=== PATIENT | male | born 1940 | race American Indian/Alaskan Native ===

== ENCOUNTER 2018-02-13 06:02 | Emergency (ER) | payer MEDICARE ==
[2018-02-13 07:54] LABS: Basophils % (Auto) 0.5 % (0.0-1.8); Eosinophils % (Auto) 0.3 % (0.0-4.3); Hematocrit 47.6 % (35.5-45.6); Hemoglobin 15.9 gm/dl (11.8-15.2); Lymphocytes # (Auto) 0.5 K/mm3 (1.2-5.4); Lymphocytes % (Auto) 7.6 % (13.4-35.0); Mean Corpuscular HGB Conc 33 % (32-34); Mean Corpuscular Hemoglobin 28 pg (28-32); Mean Corpuscular Volume 85 fl (84-94); Monocytes # (Auto) 0.3 K/mm3 (0.0-0.8); Platelet Count 134 K/mm3 (140-440); Red Cell Distribution Width 14.1 % (13.2-15.2)
[2018-02-13 08:24] LABS: Albumin 4.5 g/dL (3.9-5); BUN/Creatinine Ratio 19; Blood Urea Nitrogen 23 mg/dL (9-20); Calcium 9.3 mg/dL (8.4-10.2); Hemolysis Index 107
[2018-02-13 08:41] LABS: Bilirubin,Urine NEG (Negative); Blood,Urine MOD (Negative); Color,Urine Straw (Yellow); Mucus,Urine FEW /HPF; Urobilinogen,Urine < 2.0 mg/dL (<2.0); WBC,Urine < 1.0 /HPF (0.0-6.0)
[2018-02-13 09:11] LABS: Alanine Aminotransferase 22 units/L (7-56)
[2018-02-13 09:59] VITALS: BP 155/98
[2018-02-13] MEDS ORDERED: ZOFRAN ODT PO ONE (10:04)
[2018-02-13] MEDS ORDERED: NACL 0.9% 250ML 250 ML IV ONE (10:14)
--- NOTE | 2018-02-13 10:15 | Emergency Department Report ---
ED General Adult HPI - General Chief complaint: Abdominal Pain Stated complaint: ABD PAIN; N/V; H/A Time Seen by Provider: 02/13/18 10:01 Source: patient Mode of arrival: Wheelchair Limitations: No Limitations - History of Present Illness Initial comments: 77-year-old chronically ill his diabetes as well as history of coronary artery disease with stents and medical management, did have stents placed in 2014, had a spell last night where he woke up from a night he coughed several times nonproductive no fever no chills no chest pain with emesis 2. No blood in the emesis. He recently ate out at a restaurant not sure if he came down something. He did have some intermittent abdominal cramps. He had no blood in the stool no black bowel movements. He had no fever or shaking chills no chest pain. He is here for evaluation of intermittent nausea vomiting and some intermittent abdominal cramps with some abdominal distention with a intermittent cough. He says the vomiting as been improved since this morning at 4 AM. He denies any exertional symptoms denies any other complaints he is essentially having cough intermittent nausea vomiting with some intermittent abdominal cramps was abdominal distention -: hour(s), unknown Severity scale (0 -10): 0 Consistency: intermittent, now resolved Worsens with: eating Associated Symptoms: loss of appetite, malaise, nausea/vomiting. denies: confusion, chest pain, diaphoresis, fever/chills, headaches, rash, seizure, shortness of breath, syncope, weakness - Related Data Home Medications Medication Instructions Recorded Confirmed Last Taken glipiZIDE XL [Glucotrol Xl] 10 mg PO QAM 04/11/15 02/13/18 04/29/15 metFORMIN [Glucophage] 500 mg PO BID 04/11/15 02/13/18 04/29/15 Carvedilol [Coreg] 6.25 mg PO BID 02/13/18 02/13/18 Unknown Clopidogrel [Plavix] 75 mg PO QDAY 02/13/18 02/13/18 Unknown Furosemide [Lasix TAB] 40 mg PO QDAY 02/13/18 02/13/18 Unknown Losartan [Cozaar] 25 mg PO QDAY 02/13/18 02/13/18 Unknown Potassium Chloride [Klor-Con M20] 20 meq PO DAILY 02/13/18 02/13/18 Unknown Previous Rx's Medication Instructions Recorded Last Taken Type Aspirin [Aspirin BABY CHEW TAB] 81 mg PO QDAY #30 tab.chew 04/16/15 04/29/15 Rx AtorvaSTATin [Lipitor] 10 mg PO QDAY #30 tablet 04/16/15 04/29/15 Rx Allergies Allergy/AdvReac Type Severity Reaction Status Date / Time No Known Allergies Allergy Verified 04/29/15 12:18 ED Review of Systems ROS: Stated complaint: ABD PAIN; N/V; H/A Other details as noted in HPI Comment: All other systems reviewed and negative Constitutional: malaise. denies: diaphoresis, fever ENT: denies: dental pain, hearing loss, epistaxis Respiratory: denies: shortness of breath, SOB with exertion, SOB at rest, stridor Cardiovascular: denies: chest pain, palpitations, dyspnea on exertion, orthopnea , edema, syncope, paroxysmal nocturnal dyspnea Endocrine: denies: excessive sweating, flushing, intolerance to cold, intolerance to heat Gastrointestinal: abdominal pain, nausea, vomiting, diarrhea, other (recent travel no blood or pus no rcent travel). denies: hematemesis, melena, hematochezia Genitourinary: denies: testicular pain, testicular mass Hematological/Lymphatic: denies: easy bleeding, easy bruising, swollen glands ED Past Medical Hx - Past Medical History Previous Medical History?: Yes Hx Hypertension: Yes Hx Heart Attack/AMI: Yes Hx Diabetes: Yes Hx Renal Disease: Yes (ARF) - Surgical History Past Surgical History?: Yes Additional Surgical History: defibrilater - Social History Smoking Status: Never Smoker Substance Use Type: None - Medications Home Medications: Home Medications Medication Instructions Recorded Confirmed Last Taken Type glipiZIDE XL [Glucotrol Xl] 10 mg PO QAM 04/11/15 02/13/18 04/29/15 History metFORMIN [Glucophage] 500 mg PO BID 04/11/15 02/13/18 04/29/15 History Aspirin [Aspirin BABY CHEW TAB] 81 mg PO QDAY #30 tab.chew 04/16/15 02/13/18 Rx AtorvaSTATin [Lipitor] 10 mg PO QDAY #30 tablet 04/16/15 02/13/18 04/29/15 Rx Carvedilol [Coreg] 6.25 mg PO BID 02/13/18 02/13/18 Unknown History Clopidogrel [Plavix] 75 mg PO QDAY 02/13/18 02/13/18 Unknown History Furosemide [Lasix TAB] 40 mg PO QDAY 02/13/18 02/13/18 Unknown History Losartan [Cozaar] 25 mg PO QDAY 02/13/18 02/13/18 Unknown History Potassium Chloride [Klor-Con M20] 20 meq PO DAILY 02/13/18 02/13/18 Unknown History ED Physical Exam - General Limitations: No Limitations General appearance: alert, in no apparent distress, anxious - Head Head exam: Present: atraumatic, normocephalic - Eye Eye exam: Present: normal appearance, PERRL, EOMI - ENT ENT exam: Present: normal exam, normal orophraynx - Neck Neck exam: Present: normal inspection. Absent: tenderness, meningismus - Respiratory Respiratory exam: Present: normal lung sounds bilaterally. Absent: respiratory distress, wheezes, rales, rhonchi, stridor, chest wall tenderness, accessory muscle use, decreased breath sounds, prolonged expiratory - Cardiovascular Cardiovascular Exam: Present: regular rate, normal rhythm - GI/Abdominal GI/Abdominal exam: Present: soft, distended, tenderness. Absent: guarding, rebound, pulsatile mass - Extremities Exam Extremities exam: Present: normal inspection, normal capillary refill. Absent: pedal edema, joint swelling - Back Exam Back exam: Present: normal inspection. Absent: tenderness, CVA tenderness (R) - Neurological Exam Neurological exam: Present: alert, oriented X3, CN II-XII intact. Absent: motor sensory deficit - Psychiatric Psychiatric exam: Present: normal affect ED Course Vital Signs 02/13/18 02/13/18 02/13/18 06:14 07:51 08:00 Temperature 97.9 F Pulse Rate 88 89 Respiratory 17 17 Rate Blood Pressure 172/104 162/100 O2 Sat by Pulse 95 90 97 Oximetry 02/13/18 02/13/18 02/13/18 08:14 08:15 08:30 Temperature Pulse Rate 77 83 Respiratory 21 21 Rate Blood Pressure 172/108 174/111 O2 Sat by Pulse 96 97 97 Oximetry 02/13/18 02/13/18 02/13/18 08:45 09:00 09:15 Temperature Pulse Rate 74 78 74 Respiratory 22 22 19 Rate Blood Pressure 165/102 170/109 169/105 O2 Sat by Pulse 98 98 97 Oximetry 02/13/18 02/13/18 09:30 09:45 Temperature Pulse Rate 78 69 Respiratory 22 20 Rate Blood Pressure 158/98 155/98 O2 Sat by Pulse 97 97 Oximetry ED Medical Decision Making - Lab Data Result diagrams: 02/13/18 07:17 02/13/18 07:17 - EKG Data EKG shows normal: sinus rhythm - EKG Data When compared to previous EKG there are: no significant change - Radiology Data Radiology results: report reviewed - Medical Decision Making KG no acute ischemic change, CT abdomen and pelvis showed nothing acute he does have some mild chronic pleural effusion. No alveolar infiltrate. Laboratory studies were essentially unremarkable. EKG was no acute ischemic change, negative troponin, urinalysis and labs are otherwise mostly unremarkable, symptoms are consistent with nausea vomiting diarrhea likely related to eating something at the restaurant. He is not examined at this time. He is tolerant by mouth. They're refusing outpatient medication. He says he is much improved in the ED. No evidence of any ischemic process no evidence of any acute abdomen no evidence of any acute problem that would require further intervention or admission is noted at this time user. For close outpatient follow-up Critical care attestation.: If time is entered above; I have spent that time in minutes in the direct care of this critically ill patient, excluding procedure time. ED Disposition Clinical Impression: Nausea vomiting and diarrhea Disposition: -01 TO HOME OR SELFCARE Is pt being admited?: No Condition: Stable Instructions: Acute Nausea and Vomiting (ED), Abdominal Pain (ED) Additional Instructions: Return if new or alarming symptoms, see your doctor in 1 day, or the doctor listed Referrals: JOHNNY IBRAHIM MD [Primary Care Provider] - 3-5 Days Time of Disposition: 13:21
--- NOTE | 2018-02-13 11:35 | Cat Scan Report ---
CT ABDOMEN PELVIS WITH CONTRAST: HISTORY: abdominal pain. COMPARISON: none. TECHNIQUE: Helical CT in 1.25mm intervals following IV contrast. Sagittal and coronal reconstructions. FINDINGS: Lung bases: Small bilateral pleural effusions are identified, right greater than left. The visualized lung parenchyma is adequately aerated. Heart size is within normal limits. Liver: Normal. Biliary system: Normal. Pancreas: Normal. Spleen: Normal. Kidneys/ureters/bladder: There is cortical thickening and multifocal cortical scarring in the left kidney. The right kidney is unremarkable other than a 1 cm cyst near the superior pole. No evidence for hypervascular mass, calculus or hydronephrosis. The ureters and bladder are unremarkable. Adrenal glands: Normal. Aorta: Normal. Intestines: Unremarkable given no oral contrast was administered. Appendix: Normal. Pelvic viscera: Moderate enlargement of the prostate gland which measures up to 5.5 cm in diameter. Ascites: None. Adenopathy: None. Musculoskeletal: Intact. Mild lumbar spondylosis. IMPRESSION: No acute inflammatory process is identified. Small bilateral layering pleural effusions. Mild atrophy and cortical scarring in the left kidney, chronic. Enlarged prostate gland.
--- NOTE | 2018-02-13 11:37 | XRay Report ---
ROUTINE CHEST, TWO VIEWS: HISTORY: Cough. Mild vascular congestion and trace right pleural effusion are identified. Heart size is within normal limits. A 2-lead pacemaker device is in position. The lungs are clear. IMPRESSION: Mild pulmonary venous congestion and trace right pleural effusion.
== END 2018-02-13 14:04 | disposition home or self-care (01) ==
LOC: ED 06:02
DX: R11.2 Nausea with vomiting, unspecified (principal); R19.7 Diarrhea, unspecified; Z79.82 Long term (current) use of aspirin; I11.0 Hypertensive heart disease with heart failure; E11.9 Type 2 diabetes mellitus without complications
CPT/HCPCS: 36415; 71046; 74177; 80053; 81001; 83690; 84484; 85025; 93005; 93010; 96360; 99284; J7050; Q9967; Q0162